=== PATIENT | male | born 1935 | race Caucasian/White ===

== ENCOUNTER 2019-07-27 12:39 | Emergency (ER) | payer MEDICARE, OTHER, SELFPAY ==
[2019-07-27 12:40] VITALS: BP 167/83; PULSE 67; RESP 20; TEMP 36.4; O2SAT 94; BMI 25.4
[2019-07-27 12:44] VITALS: O2SAT 94
--- NOTE | 2019-07-27 12:49 | RAD_ITS ---
STUDY: X-RAY - UNILATERAL RIBS ( LEFT ) WITH CHEST REASON FOR EXAM: Male, 84 years old. FELL TODAY -- LEFT SIDED RIB PAIN TECHNIQUE - RIBS: 4 view(s) of the ribs. TECHNIQUE - CHEST: PA COMPARISON: None. FINDINGS - RIBS: There are transverse fractures of the lateral eighth and ninth ribs. FINDINGS - CHEST: The lungs are clear and expanded. There is no demonstrated pleural abnormality. Normal size heart. Normal mediastinum and chris. Normal visualized pulmonary arteries. There is atherosclerotic calcification of the aortic arch with tortuosity. There is demineralization of the osseous structures. Fusion hardware of the lower thoracic spine with degenerative changes and scoliosis of the thoracolumbar spine. There is no demonstrated abnormality of the visualized soft tissue structures of the upper abdomen. RAD/Ribs Uni Min 3V w/PA Chest IMPRESSION: RIBS: Lateral left eighth and ninth rib fractures. CHEST: No pneumothorax. Electronically Signed: Russ Shaver MD (Brooks) at 13:52 EST , Service support ,
[2019-07-27] MEDS: oxyCODONE 5 MG Tablet PO (13:03)
--- NOTE | 2019-07-27 13:40 | ED.VISSUMM ---
- ER Visit Summary Date of Service: 07/27/19 Chief Complaint: Left rib pain History of Present Illness: The patient is a 84 M who presents with left rib pain. Patient states he was reaching for something at home when he fell and hit the left side of his ribs. He normally ambulates with a walker and he believes he fell onto his walker. Unknown head trauma. He is complaining of pain in the left ribs. Is worse with breathing. Ibuprofen is not helping at home. He denies any other symptoms at this time. Physical Examination: Vital signs are reviewed. HEENT exam is atraumatic. His neck is nontender. Heart is regular rate and rhythm without murmurs. Lungs are clear. He has tenderness to palpation of the left ribs in the midaxillary line. Abdomen is soft and nontender. Back nontender. His GCS is 15. Neurologic exam is at baseline. Test Results: Left rib x-rays reveal 8 the ninth rib fractures. CAT scan head reveals chronic changes. Emergency Department Course and Treatment: Patient was given oxycodone. There are no signs of pneumothorax. I will treat him with oxycodone for home. He will be given an incentive spirometer to prevent pneumonia. He will call his doctor on Monday for follow-up. Treatment Plan: [] Disposition: Discharge Impression: Left rib fractures This note was generated with [employer] dictation software. It may contain incorrect words, spelling, and punctuation that were not noted in review of the chart prior to signing ED Disposition - Plan for ED Patient: Referrals: Davy Leiva MD [Primary Care Provider] -
--- NOTE | 2019-07-27 13:41 | CT_ITS ---
STUDY: CT BRAIN WITHOUT CONTRAST REASON FOR EXAM: Male, 84 years old. FALL 2 DAYS AGO. DEMENTIA AND PARKINSON''S RADIATION DOSAGE (If Supplied By Facility): CTDIvol = ( 44.99 ) mGy, DLP = ( 812.98 ) mGycm TECHNIQUE: Transaxial CT imaging of the brain was performed without administration of intravenous contrast material. Individualized dose optimization techniques were used for this CT. COMPARISON: No relevant priors. FINDINGS: Normal soft tissue structures. Normal calvarium. There is mild cerebral atrophy with widening of the extra-axial spaces and ventricular dilatation. There are areas of decreased attenuation within the white matter tracts of the supratentorial brain, consistent with microvascular disease changes. Localized area of diminished density of the junction of the left frontal and parietal lobes may be sequela of old infarction. Normal basal ganglia and thalami. Normal brainstem. Normal cerebellum. There is no intracranial hemorrhage. There are no findings of an acute ischemic infarction. Sclerosis and fluid of the bilateral mastoid air cells identified. Visualized paranasal sinuses are unremarkable. CT/Brain/Head without Contrast IMPRESSION: 1. No acute intracranial hemorrhage or mass effect. 2. Central parenchymal volume loss. White matter changes that are nonspecific but most commonly associated with chronic small vessel ischemic disease. Small old lacunar infarction of the left frontal-parietal lobe junction. 3. Bilateral mastoiditis, chronic appearing. Electronically Signed: Russ Shaver MD (Brooks) at 14:16 EST , Service support ,
--- NOTE | 2019-07-27 14:45 | ED.DEP ---
ED Disposition - Plan for ED Patient: Disposition: Home or Assisted Living Instructions: FRACTURE, Rib Prescriptions: Oxycodone [Oxyir] 5 mg PO Q6H PRN PRN 3 Days #12 tablet PRN Reason: Pain/Inflammation Transmission Status: Sent to [facility] Referrals: Davy Leiva MD [Primary Care Provider] -
[2019-07-27 15:03] VITALS: BP 172/84; PULSE 54; RESP 16; O2SAT 95
== END 2019-07-27 15:07 | disposition home or self-care (01) ==
PROVIDERS: Emergency Provider Emergency Medicine; Family Provider Family Medicine; PCP Family Medicine
DX: S22.42XA Multiple fractures of ribs, left side, initial encounter for closed fracture (principal); W18.39XA Other fall on same level, initial encounter; Y93.89 Activity, other specified; Y92.009 Unspecified place in unspecified non-institutional (private) residence as the place of occurrence of the external cause; F03.90 Unspecified dementia, unspecified severity, without behavioral disturbance, psychotic disturbance, mood disturbance, and anxiety; I10 Essential (primary) hypertension
CPT/HCPCS: 70450; 71101; 99284

== ENCOUNTER 2019-10-02 13:07 | Inpatient (IN) | payer MEDICARE, OTHER, SELFPAY ==
[2019-10-02] VITALS (7 sets, daily range): BP systolic 125–157; BP diastolic 70–82; PULSE 56–71; RESP 14–18; TEMP 36.2–36.9; O2SAT 91–99; BMI 32.5; BMI 22.9
--- NOTE | 2019-10-02 13:18 | ED.RN ---
social worker aide at bedside.
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
--- NOTE | 2019-10-02 13:58 | CT_ITS ---
STUDY: CT BRAIN WITHOUT CONTRAST REASON FOR EXAM: Male, 84 years old. Trauma, fall, denies head pain or LOC. Hx Parkinson''s, dementia, hypertension, diabetes. RADIATION DOSAGE (If Supplied By Facility): CTDIvol = ( 44.99 ) mGy, DLP = ( 796.11 ) mGycm TECHNIQUE: Transaxial CT imaging of the brain was performed without administration of intravenous contrast material. Individualized dose optimization techniques were used for this CT. COMPARISON: Comparison is made with prior examination dated July 27, 2019. FINDINGS: Normal soft tissue structures. Normal calvarium. There is mild cerebral atrophy with widening of the extra-axial spaces and ventricular dilatation. There are areas of decreased attenuation within the white matter tracts of the supratentorial brain, consistent with microvascular disease changes. Normal basal ganglia and thalami. Normal brainstem. Normal cerebellum. There is no intracranial hemorrhage. There are no findings of an acute ischemic infarction. Minimal mucosal thickening along the posterior aspect of the right ethmoid sinus. CT/Brain/Head without Contrast IMPRESSION: Chronic involutional changes of the brain. Electronically Signed: Francisco J Brunson, at 15:33 EDT , Service support ,
--- NOTE | 2019-10-02 13:58 | CT_ITS ---
STUDY: CT CERVICAL SPINE WITHOUT CONTRAST REASON FOR EXAM: Male, 84 years old. Trauma, fall, denies head pain or LOC. Hx Parkinson''s, dementia, hypertension, diabetes. RADIATION DOSAGE (If Supplied By Facility): CTDIvol = ( 25.98 ) mGy, DLP = ( 530.31 ) mGycm TECHNIQUE: High resolution transaxial imaging was performed without contrast material. Sagittal and coronal images were reconstructed. Individualized dose optimization techniques were used for this CT. COMPARISON: None FINDINGS: Normal craniovertebral junction. There are degenerative changes of the anterior atlantoaxial articulation. Normal odontoid process. There is straightening of the normal cervical lordosis. Normal vertebral bodies and posterior osseous elements. C2-3: Facet joint osteoarthritis and hypertrophy with minimal anterior listhesis of C2 on C3 due to the facet joint osteoarthritis. Bilateral neural foraminal stenosis. C3-4: Marked degree of disc space narrowing. Posterior spondylosis and uncovertebral arthrosis. Facet joint osteoarthritis and hypertrophy worse on the right side with the marked degree of the right neural foraminal stenosis. C4-5: Marked degree of disc space narrowing. Spondylosis. Uncovertebral arthrosis. Hypertrophy of the facet joints with bilateral neural foraminal stenosis. C5-6: Marked degree of disc space narrowing. Spondylosis and uncovertebral arthrosis. Marked degree of bilateral neural foraminal stenosis. C6-7: Mild degree of disc space narrowing. Spondylosis. C7-T1: Normal endplates. Normal disc height and morphology. Normal central canal and intervertebral neuroforamina. Atherosclerotic calcification of the aortic arch. Calcification of the carotid bifurcations. CT/Spine Cervical without Contras IMPRESSION: Multilevel degenerative changes, as described above. Electronically Signed: Francisco J Brunson, at 15:36 EDT , Service support ,
--- NOTE | 2019-10-02 13:59 | EKG12_ITS ---
Test Reason : FALL Blood Pressure : / mmHG Vent. Rate : 065 BPM Atrial Rate : 065 BPM P-R Int : 182 ms QRS Dur : 092 ms QT Int : 462 ms P-R-T Axes : 000 -23 139 degrees QTc Int : 480 ms Sinus rhythm with Premature ventricular complexes or Fusion complexes ST & T wave abnormality, consider lateral ischemia Abnormal ECG Confirmed by SIERRA ALANIS, REBEKAH ([id number]), field map editor MONY PACKER ([id number]) on 10/04/2019 12:59:06 PM Referred By: MARTA Confirmed By:RC ESQUIVEL MD
[2019-10-02] MEDS: Ondansetron 4 MG/2 ML Vial IV (14:38)
[2019-10-02] MEDS: 0.9% Normal Saline 1,000 ML 1000 ML IV (14:39)
[2019-10-02] MEDS: fentaNYL 100 MCG/2 ML Ampul 50 MCG IV (14:39)
[2019-10-02 15:11] LABS: Absolute Lymphocyte Count 1.07 X10^3/uL (0.83-4.51); Absolute Neutrophil Count 6.4 X10^3/uL (2.0-7.7); Basophil# 0.02 X10^3/uL; Basophil% 0.2 % (0-1); Eosinophil# 0.02 X10^3/uL; Eosinophils% 0.2 % (0-5); Hematocrit 44.2 % (40-54); Hemoglobin 14.6 g/dL (13.0-16.5); Lymphocyte # 1.07 X10^3/ul (4.0); Lymphocyte % 13.3 % (19-41); Mean Corpuscular Hgb 30.2 pg (27.0-32.0); Mean Corpuscular Volume 91.5 fL (80-94); Mean Platelet Vol. 9.5 fl (6.2-12.0); Monocyte# 0.47 X10^3/uL; Monocyte% 5.8 % (0-10); NRBC Flagged by Analyzer 0 % (0-5); Neutrophil # 6.43 X10^3/uL (2.7-7.7); Neutrophil % 80.1 % (47-70); Platelet Count 162 K/mm3 (150-450); RBC Distribution Width CV 13.2 % (11.6-14.6); Red Blood Count 4.83 M/mm3 (4.6-6.2)
--- NOTE | 2019-10-02 15:20 | RAD_ITS ---
STUDY: X-RAY - PELVIS AND LEFT HIP REASON FOR EXAM: Male, 84 years old. C/O GROIN PAIN, BRUISE TO LT HIP AN BACK PER HOME HEALTH AID TECHNIQUE: 3 views of the pelvis and hip. COMPARISON: None. FINDINGS: Moderate amount of fecal material is seen in the rectosigmoid colon. There are multiple calcified phleboliths. Normal bilateral iliac wings, sacroiliac joints and visualized sacrum. Normal bilateral superior and inferior pubic rami. Normal pubic symphysis. Normal bilateral ischial tuberosities. Normal visualized femoral head. Normal acetabulum. There is moderate articular joint space narrowing of the hip. RAD/HIP, UNI W/ Pelvis 2-3 Views IMPRESSION: Moderate degree of degenerative changes of both hip joints. Electronically Signed: Francisco J Brunson, at 15:36 EDT , Service support ,
--- NOTE | 2019-10-02 15:20 | RAD_ITS ---
STUDY: X-RAY CHEST REASON FOR EXAM: Male, 84 years old. FALL, C/O GROIN PAIN, BRUISE TO LT HIP AN BACK PER HOME HEALTH AID TECHNIQUE: Single AP portable view of the chest. COMPARISON: Comparison is made with prior examination dated June 23, 2017. FINDINGS: Elevation of the right hemidiaphragm. Persistent mild increased markings in the right midlung suggestive of scarring or recurrent infiltration. Blunting of the left costophrenic angle. Normal size heart. Normal mediastinum and chris. Normal visualized pulmonary arteries. There is atherosclerotic calcification of the aortic arch with tortuosity. There are diffuse degenerative changes of the visualized thoracic spine. Prior fusion in the lower thoracic spine. There is degenerative osteoarthritis of the bilateral shoulders. There is no demonstrated abnormality of the visualized soft tissue structures of the upper abdomen. RAD/Chest 1 View (Portable) IMPRESSION: Elevation of the right hemidiaphragm. Mild increased markings in the right midlung although this has improved as compared to prior study. Electronically Signed: Francisco J Brunson, at 16:02 EDT , Service support ,
[2019-10-02 15:21] LABS: ALB/GLOB Ratio 1.2 RATIO (0.9-2.4); AST(SGOT) 24 U/L (15-37); Alanine Aminotransfer ALT/SGPT 20 U/L (16-61); Albumin, Serum 3.7 g/dL (3.2-5.0); Alkaline Phosphatase 149 U/L (45-117); Anion Gap 0 (5-15); BUN 12 mg/dL (7-18); BUN/Creat Ratio 16.8 RATIO (10-20); CPK Total, Creatine Kinase 250 U/L (39-308); Calcium,Total 8.8 mg/dL (8.5-10.1); Chloride 108 mmol/L (98-107); Creatinine, Serum 0.71 mg/dL (0.70-1.30); EST Glomerular Filtration Rate 112 mL/min (>60); Est Glom Filt Rate - Afr Amer 135 mL/min (>60); Estimated Creatinine Clearance 54.15 ml/min; Globulin 3.1 g/dL (2.2-4.2); Glucose 112 mg/dL (74-106); Potassium 3.7 mmol/L (3.5-5.1); Protein, Total 6.8 g/dL (6.4-8.2); Sodium Level 142 mmol/L (136-145)
[2019-10-02 15:28] LABS: International Normalized Ratio 1.2; Partial Thromboplast Time 30.2 Seconds (24.1-36.2); Prothrombin Time (Protime)PT. 14.6 SECONDS (11.7-14.9)
--- NOTE | 2019-10-02 16:02 | ED.RN ---
pt straight cath with no urine return, MD aware, no new orders given at this time.
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
[2019-10-02 16:40] LABS: Color, Urine Yellow (Yellow); Glucose, Dipstick Normal (Normal); Ketone-Dipstick 5 mg/dl (Negative); Leukocyte Esterase-Dipstick 500 /ul (Negative); Nitrite-Dipstick Positive (Negative); Occult Blood-Urine 250 /ul (Negative); Protein-Dipstick 500 mg/dl (Negative); Urine Bilirubin Dipstick Negative (Negative); Urine Clarity Clear (Clear); Urine Urobilinogen 1 mg/dl (Normal)
[2019-10-02 17:13] LABS: Bacteria 3+ /hpf (None Seen); Mucous, Urine 1+ /hpf (<or=2+); Red Blood Cells-Urine 0-5 SEEN /hpf (0-5); Squamous Epithelial Cells - UA 0-5 SEEN /hpf (0-5); White Blood Cells 0-5 SEEN /hpf (0-5)
[2019-10-02 17:14] LABS: Amorphous Sediment 1+
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
[2019-10-02] MEDS: 0.9% Saline Lock 10 ML Syringe IV (18:47)
[2019-10-02] MEDS: 0.9% Normal Saline 1,000 ML 75 ML IV (18:47)
[2019-10-02 18:52] LABS: Magnesium 2.1 mg/dL (1.6-2.6)
[2019-10-02] MEDS: Morphine 2 MG/ML Syringe IV (18:53)
[2019-10-02] MEDS: Donepezil HCl 10 MG Tablet PO (20:51)
[2019-10-02] MEDS: Atorvastatin Calcium 10 MG Tablet PO (20:51)
[2019-10-02] MEDS: Famotidine 20 MG Tablet PO (20:51)
[2019-10-02] MEDS: QUEtiapine 25 MG Tablet PO (20:51)
[2019-10-03] MEDS: Morphine 2 MG/ML Syringe IV (02:33)
[2019-10-03 02:40] VITALS: BP 136/68; PULSE 51; RESP 18; TEMP 37; O2SAT 97
[2019-10-03 03:01] VITALS: PULSE 47
[2019-10-03] MEDS: 0.9% Normal Saline 1,000 ML 75 ML IV ×2 (06:20→20:40)
[2019-10-03] MEDS: Carbidopa/Levodopa 25/100 Tablet PO ×3 (06:20→20:06)
[2019-10-03 06:56] LABS: Anion Gap 6 (5-15); BUN 13 mg/dL (7-18); BUN/Creat Ratio 19.5 RATIO (10-20); Chloride 110 mmol/L (98-107); Creatinine, Serum 0.67 mg/dL (0.70-1.30); EST Glomerular Filtration Rate 121 mL/min (>60); Est Glom Filt Rate - Afr Amer 147 mL/min (>60); Estimated Creatinine Clearance 55.89 ml/min; Glucose 89 mg/dL (74-106); Potassium 3.7 mmol/L (3.5-5.1); Sodium Level 143 mmol/L (136-145)
[2019-10-03 08:40] VITALS: BP 155/76; PULSE 62; RESP 16; TEMP 36.7; O2SAT 93
[2019-10-03] MEDS: Gabapentin 300 MG Capsule PO ×3 (08:42→20:06)
[2019-10-03] MEDS: Lisinopril 40 MG Tablet PO (08:42)
[2019-10-03] MEDS: Enoxaparin 40 MG/0.4 ML Syringe SC (08:42)
[2019-10-03] MEDS: dilTIAZem CD 180 MG Capsule PO (08:42)
[2019-10-03] MEDS: Famotidine 20 MG Tablet PO ×2 (08:42→20:06)
[2019-10-03 10:20] LABS: Vitamin B12 179 pg/mL (211-911)
[2019-10-03 11:15] VITALS: BP 148/86; PULSE 62; RESP 16; TEMP 36.6; O2SAT 95
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
--- NOTE | 2019-10-03 12:48 | CASEMGMT ---
Living Will and Health Care Power of Nurse Healthcare Manager naming pt Hilda Skaggs are under summary tab of pt DARCIE. SCOTT Rainey
--- NOTE | 2019-10-03 13:19 | NURSING ---
pt hitting, spitting yelling, attempting to get out of bed, throwing things at staff. nursing staff at bedside. notified dr rothman
--- NOTE | 2019-10-03 13:32 | NURSING ---
Patient extremely agitated. Hitting staff and trying to get out bed. Cursing at staff. Will not stay in bed or leave gown on. Concern with patient injury himself. Dr. Fine notified and will order Gato and Sasha Kearney will be up to assess patient. extra male staff member from bed laborer to help sitter in the room until we can have the patient less agitated to prevent injury to patient or staff.
--- NOTE | 2019-10-03 13:35 | SUR.OPER ---
Sasha bolanos to see patient. Entering more medication orders. Libra amezcua RN aware. 3 staff members remain as sitters in room with patient. Patient continues to hit and spit at staff.
--- NOTE | 2019-10-03 13:36 | NURSING ---
Sasha bolanos to see patient. Writing more medication orders. 3 staff remain in patient room due to hitting and spitting at staff, continue to crawl out of bed. Libra Iraheta primary RN aware.
[2019-10-03] MEDS: Haloperidol Lactate 5 MG/ML Vial 2 MG IM (13:41)
--- NOTE | 2019-10-03 14:05 | NURSING ---
this nurse to [facility] to discussed patient prior to transfer to [facility]. pt noted to be verbally and physically aggressive. Pt has 4 staff members at the bedside helping to keep patient from hitting staff. Aware per primary RN that pt's is unavailable at this time. This nurse placed call to pt's son listed on demographics requesting him come see patient. Primary RN administering Haldol IM. Phone call placed to Dr. Fine, discussed patient's status and safety concerns. Discussed soft wrist restraints if necessary. Dr. Fine sent order for soft wrist restraints as necessary.
--- NOTE | 2019-10-03 14:15 | NURSING ---
pt's son now at bedside and was updated by primary RN Libra. Pt now in bed with gown on and more relaxed. Pt transferred to FL3 with Ishmael Box RN, This nurse, FELICE veliz and patient's son.
[2019-10-03] MEDS: Acetaminophen 325 MG Tablet 650 MG PO ×2 (14:48→21:16)
[2019-10-03] MEDS: QUEtiapine 25 MG Tablet PO ×2 (14:49→20:07)
--- NOTE | 2019-10-03 16:00 | PCM.PROGNOTE ---
<Sasha Kearney - Last Filed: 10/03/19 16:14> Patient Problems: Active and Suspected Problems Recurrent fall (Acute) Subjective: Patient seen and examined. Confused this morning however pleasant and cooperative. Later in the day developed increased agitation and combativeness. Requiring bedside sitter for safety. - Physical Exam Vitals/I&O's: Vital Signs Temp Pulse Resp BP Pulse Ox 97.9 F 62 16 148/86 H 95 10/03/19 11:15 10/03/19 11:15 10/03/19 11:15 10/03/19 11:15 10/03/19 11:15 Oxygen Flow Rate (L/min) 2 Oxygen Delivery Method Room Air Weight: 155 lb 10.342 oz Body Mass Index (BMI) 22.9 Intake and Output for Last 24 Hours 10/01/19 10/02/19 10/03/19 23:59 23:59 23:59 Intake Total 1000 / 1140 1411.25 / 1411.25 Output Total 100 / 100 Balance 1000 / 1140 1311.25 / 1311.25 General: Alert, Oriented x3, Confused HEENT: Atraumatic, PERRLA, EOMI, Normocephalic Neck: Supple, No JVD, Negative Carotid Bruits Lungs: Clear to auscultation, Normal air movement Cardiovascular: Regular rate, Regular Rhythm, Normal S1, Normal S2, No murmurs Abdomen: Bowel Sounds Present, Soft, Non Tender, Non-Distended Extremities: No clubbing, No cyanosis, No edema Skin: No rashes, No breakdown, - - Staged ecchymosis scattered bilateral upper and lower extremities Musculoskeletal: No Tenderness to Palpation of Joints or Extremities, Tenderness - Right hip area Neurological: Cranial nerves II-XII grossly intact, Neuro grossly intact Psych/Mental Status: Agitated, Impulsive, Restless Laboratory Results 10/02/19 14:55: Magnesium 2.1 10/02/19 16:30: Urine Color Yellow, Urine Clarity Clear, Urine pH 8.0, Ur Specific [place] 1.010, Urine Protein 500 H, Urine Glucose (UA) Normal, Urine Ketones 5 H, Urine Occult Blood 250 H, Urine Nitrite Positive H, Urine Bilirubin Negative, Urine Urobilinogen 1 H, Ur Leukocyte Esterase 500 H, Urine RBC 0-5 SEEN, Urine WBC 0-5 SEEN, Ur Squamous Epith Cells 0-5 SEEN, Amorphous Sediment 1+, Urine Bacteria 3+, Urine Mucus 1+ 10/02/19 20:35: Troponin I 0.056 H 10/03/19 05:54: Sodium 143, Potassium 3.7, Chloride 110 H, Carbon Dioxide 27.0, Anion Gap 6, BUN 13, Creatinine 0.67 L, Estim Creat Clear Calc 55.89, Est GFR (MDRD) Af Amer 147, Est GFR (MDRD) Non-Af 121, BUN/Creatinine Ratio 19.5, Glucose 89, Calcium 8.0 L, Folate 17.50, TSH 1.20 10/03/19 05:54: Vitamin B12 179 L, Vitamin D 25-Hydroxy Pending Current Medications Acetaminophen (Tylenol) 650 mg PO Q6H PRN PRN PRN Reason: Pain Score 1-10/Temp > 100.7 F Last Admin: 10/03/19 14:48 Dose: 650 mg Documented by: Al Hydroxide/Mg Hydroxide (Mylanta Ii) 30 ml PO Q6H PRN PRN PRN Reason: Gastric Burning Atorvastatin Calcium (Lipitor) 10 mg PO QHS [facility] Last Admin: 10/02/19 20:51 Dose: 10 mg Documented by: Carbidopa/Levodopa (Sinemet) 1 tablet PO TIDAC [facility] Last Admin: 10/03/19 11:14 Dose: 1 tablet Documented by: Diltiazem HCl (Cardizem Cd) 180 mg PO DAILY [facility] Last Admin: 10/03/19 08:42 Dose: 180 mg Documented by: Donepezil HCl (Aricept) 10 mg PO QHS [facility] Last Admin: 10/02/19 20:51 Dose: 10 mg Documented by: Enoxaparin Sodium (Lovenox) 40 mg SC DAILY [facility] Last Admin: 10/03/19 08:42 Dose: 40 mg Documented by: Famotidine (Pepcid) 20 mg PO BID [facility] Last Admin: 10/03/19 08:42 Dose: 20 mg Documented by: Gabapentin (Neurontin) 300 mg PO TIDCM [facility] Last Admin: 10/03/19 12:29 Dose: 300 mg Documented by: Glucagon () 1 mg IM .X1 PRN PRN Reason: Hypoglycemia Haloperidol Lactate (Haldol) 2 mg IM Q4H PRN PRN PRN Reason: AGITATION Sodium Chloride () 1,000 mls @ 75 mls/hr IV .[id number] [facility] Last Infusion: 10/03/19 08:32 Dose: 0 mls/hr Documented by: Dextrose (Dextrose 10%-Water) 250 mls @ 999 mls/hr IV .Q16M PRN; Protocol PRN Reason: HYPOGLYCEMIA Lisinopril (Zestril) 40 mg PO DAILY [facility] Last Admin: 10/03/19 08:42 Dose: 40 mg Documented by: Morphine Sulfate () 2 mg IV Q3H PRN PRN PRN Reason: Pain Score 6-10/10 Last Admin: 10/03/19 02:33 Dose: 2 mg Documented by: Nitroglycerin (Nitrostat) 0.4 mg SUBLINGUAL Q5M PRN PRN Reason: CARDIAC/CHEST PAIN Oxycodone HCl (Oxyir) 5 mg PO Q4H PRN PRN PRN Reason: Pain Score 4-5/10 Prochlorperazine Edisylate (Compazine Iv) 5 mg IV Q4H PRN PRN PRN Reason: Breakthrough nausea/vomiting Quetiapine Fumarate (Seroquel) 25 mg PO QHS [facility] Last Admin: 10/03/19 14:49 Dose: 25 mg Documented by: Quetiapine Fumarate (Seroquel) 25 mg PO QHS PRN PRN Reason: AGITATION Sodium Chloride () 10 - 40 ml IV UD PRN PRN Reason: SALINE FLUSH Last Admin: 10/02/19 18:47 Dose: 10 ml Documented by: Medical Necessity - Tobacco Use Smoking Status: Former smoker Tobacco Use: Cigarettes Assessment/Plan All Active Problems Recurrent fall (Acute) 1. Parkinson's disease with gait instability, recurrent falls at home- PT/OT. Continue home medication regimen. Brain CT with chronic changes. Cervical spine CT with degenerative changes. Chest x-ray without acute process. Hip and pelvis x-ray shows no acute process. SNF pending pre-CERT. 2. Dementia with behavioral disturbances-increased agitation this afternoon. On Aricept, Seroquel. PRN Haldol ordered. 3. Possible UTI-may be contributing to increased confusion and weakness. Urinalysis with 3+ bacteria, 500 leukocytes and positive nitrite. Urine culture pending. Will begin IV Rocephin empirically pending culture. 4. Indeterminate troponin-did not trend. No EKG changes. Denies chest pain. No plans for further evaluation at this time. 5. Hypertension-stable, continue lisinopril regimen. 6. Hyperlipidemia-continue statin. 7. GERD-continue PPI. DVT prophylaxis-Lovenox subcu Discharge planning: SNF pending approval. This patient was seen by RACHEL Mccoy under the supervision of Dr. Fine. <RodyMichelle Bajwa - Last Filed: 10/03/19 17:40> - Physical Exam Vitals/I&O's: Vital Signs Temp Pulse Resp BP Pulse Ox 97.9 F 62 16 148/86 H 95 10/03/19 11:15 10/03/19 11:15 10/03/19 11:15 10/03/19 11:15 10/03/19 11:15 Oxygen Flow Rate (L/min) 2 Oxygen Delivery Method Room Air Weight: 155 lb 10.342 oz Body Mass Index (BMI) 22.9 Intake and Output for Last 24 Hours 10/01/19 10/02/19 10/03/19 23:59 23:59 23:59 Intake Total 1000 / 1140 1411.25 / 1411.25 Output Total 100 / 100 Balance 1000 / 1140 1311.25 / 1311.25 Laboratory Results 10/02/19 14:55: Magnesium 2.1 10/02/19 20:35: Troponin I 0.056 H 10/03/19 05:54: Sodium 143, Potassium 3.7, Chloride 110 H, Carbon Dioxide 27.0, Anion Gap 6, BUN 13, Creatinine 0.67 L, Estim Creat Clear Calc 55.89, Est GFR (MDRD) Af Amer 147, Est GFR (MDRD) Non-Af 121, BUN/Creatinine Ratio 19.5, Glucose 89, Calcium 8.0 L, Folate 17.50, TSH 1.20 10/03/19 05:54: Vitamin B12 179 L, Vitamin D 25-Hydroxy Pending Current Medications Acetaminophen (Tylenol) 650 mg PO Q6H PRN PRN PRN Reason: Pain Score 1-10/Temp > 100.7 F Last Admin: 10/03/19 14:48 Dose: 650 mg Documented by: Al Hydroxide/Mg Hydroxide (Mylanta Ii) 30 ml PO Q6H PRN PRN PRN Reason: Gastric Burning Atorvastatin Calcium (Lipitor) 10 mg PO QHS [facility] Last Admin: 10/02/19 20:51 Dose: 10 mg Documented by: Carbidopa/Levodopa (Sinemet) 1 tablet PO TIDAC [facility] Last Admin: 10/03/19 11:14 Dose: 1 tablet Documented by: Diltiazem HCl (Cardizem Cd) 180 mg PO DAILY [facility] Last Admin: 10/03/19 08:42 Dose: 180 mg Documented by: Donepezil HCl (Aricept) 10 mg PO QHS [facility] Last Admin: 10/02/19 20:51 Dose: 10 mg Documented by: Enoxaparin Sodium (Lovenox) 40 mg SC DAILY [facility] Last Admin: 10/03/19 08:42 Dose: 40 mg Documented by: Famotidine (Pepcid) 20 mg PO BID [facility] Last Admin: 10/03/19 08:42 Dose: 20 mg Documented by: Gabapentin (Neurontin) 300 mg PO TIDCM [facility] Last Admin: 10/03/19 12:29 Dose: 300 mg Documented by: Glucagon () 1 mg IM .X1 PRN PRN Reason: Hypoglycemia Haloperidol Lactate (Haldol) 2 mg IM Q4H PRN PRN PRN Reason: AGITATION Sodium Chloride () 1,000 mls @ 75 mls/hr IV .[id number] [facility] Last Infusion: 10/03/19 08:32 Dose: 0 mls/hr Documented by: Dextrose (Dextrose 10%-Water) 250 mls @ 999 mls/hr IV .Q16M PRN; Protocol PRN Reason: HYPOGLYCEMIA Ceftriaxone Sodium 2 gm/ (Sodium Chloride) 50 mls @ 100 mls/hr IV Q24 [facility] Last Admin: 10/03/19 17:15 Dose: Not Given Documented by: Lisinopril (Zestril) 40 mg PO DAILY [facility] Last Admin: 10/03/19 08:42 Dose: 40 mg Documented by: Morphine Sulfate () 2 mg IV Q3H PRN PRN PRN Reason: Pain Score 6-10/10 Last Admin: 10/03/19 02:33 Dose: 2 mg Documented by: Nitroglycerin (Nitrostat) 0.4 mg SUBLINGUAL Q5M PRN PRN Reason: CARDIAC/CHEST PAIN Oxycodone HCl (Oxyir) 5 mg PO Q4H PRN PRN PRN Reason: Pain Score 4-5/10 Prochlorperazine Edisylate (Compazine Iv) 5 mg IV Q4H PRN PRN PRN Reason: Breakthrough nausea/vomiting Quetiapine Fumarate (Seroquel) 25 mg PO QHS [facility] Last Admin: 10/03/19 14:49 Dose: 25 mg Documented by: Quetiapine Fumarate (Seroquel) 25 mg PO QHS PRN PRN Reason: AGITATION Sodium Chloride () 10 - 40 ml IV UD PRN PRN Reason: SALINE FLUSH Last Admin: 10/02/19 18:47 Dose: 10 ml Documented by: Assessment/Plan Patient seen by Sasha RAMOS under my supervision Patient was admitted with a complaint of recurrent falls at home. He has Parkinson's disease with gait instability. He was admitted for placement. Patient seen and examined. He was initially calm but subsequently became very agitated later in the day. He required IM Haldol as well as a bedside sitter. o/e: Vital Signs Height 5 ft 9 in Weight: 155 lb 10.342 oz Weight in Pounds 155.6 lbs Pulse Ox 95 Temperature 97.9 F Pulse Rate 62 Respiratory Rate 16 Blood Pressure 148/86 Blood Pressure Position Semi-Fowlers General: Alert, Oriented x3, confused, agitated HEENT: Atraumatic, PERRLA, EOMI, Normocephalic Neck: Supple, No JVD, Negative Carotid Bruits Lungs: Clear to auscultation, Normal air movement Cardiovascular: Regular rate, Regular Rhythm, Normal S1, Normal S2, No murmurs Abdomen: Bowel Sounds Present, Soft, Non Tender, Non-Distended Extremities: No clubbing, No cyanosis, No edema Skin: No rashes, No breakdown, - -few ecchymotic patches over arms. Musculoskeletal: No Tenderness to Palpation of Joints or Extremities, Neurological: Cranial nerves II-XII grossly intact, Neuro grossly intact Psych/Mental Status: Agitated, Plan is to start patient on Seroquel 25 mg nightly. IM Haldol 1 mg as needed. Continue with sitter. For placement in SNF once medically stable. Rest as per Sasha MENDESC's note, which I have reviewed and endorsed. Inpatient E&M: 21023 Subs Hosp L2
--- NOTE | 2019-10-03 16:05 | CHAPLAIN ---
sitter in room with patient who is sleeping; left a calling card
[2019-10-03 20:00] VITALS: BP 147/62; PULSE 63; RESP 18; TEMP 37.1; O2SAT 96
[2019-10-03] MEDS: Atorvastatin Calcium 10 MG Tablet PO (20:06)
[2019-10-03] MEDS: Donepezil HCl 10 MG Tablet PO (20:07)
[2019-10-03 20:15] VITALS: PULSE 63; RESP 18; O2SAT 96
[2019-10-03] MEDS: 0.9% Saline Lock 10 ML Syringe IV (20:40)
[2019-10-04 04:43] VITALS: BP 143/59; PULSE 63; RESP 18; TEMP 36.7; O2SAT 92
[2019-10-04] MEDS: Carbidopa/Levodopa 25/100 Tablet PO ×3 (05:01→15:25)
[2019-10-04] MEDS: Acetaminophen 325 MG Tablet 650 MG PO ×2 (06:14→20:29)
[2019-10-04 07:38] LABS: Anion Gap 4 (5-15); BUN 19 mg/dL (7-18); BUN/Creat Ratio 26.4 RATIO (10-20); Chloride 110 mmol/L (98-107); Creatinine, Serum 0.72 mg/dL (0.70-1.30); EST Glomerular Filtration Rate 111 mL/min (>60); Est Glom Filt Rate - Afr Amer 134 mL/min (>60); Estimated Creatinine Clearance 55.89 ml/min; Glucose 122 mg/dL (74-106); Potassium 3.3 mmol/L (3.5-5.1); Sodium Level 142 mmol/L (136-145)
[2019-10-04 10:10] VITALS: BP 141/68; PULSE 66; RESP 18; TEMP 36.4; O2SAT 92
--- NOTE | 2019-10-04 10:11 | NURSING ---
Refusing medications at this time. Pulled IV out. Grabbing this RN's hands to restrain while taking VS. After talking to patient about trying to rest quietly in the bed and to attempt to calm down he is resting in bed in supine position. VSS-see intervention. Will attempt to give medications at a later time. Dr. Buckley updated. Bed alarm on and call light within reach.
--- NOTE | 2019-10-04 11:04 | CASEMGMT ---
Social Work Note KODY spoke with RN. Last time pt had Haldol was at 1:40pm and pt's sitter was discontinued at 12:30pm last night. KODY updated RN that pt will need to be Haldol and sitter free for 24 hours before being able to discharge to SNF. KODY placed a call to [facility] and spoke with Taylor as Tabby in admissions was not available at this time. KODY updated Taylor that pt had Haldol yesterday and sitter was discontinued last night at 12:30pm. KODY updated Taylor that pt will need to be sitter free and Haldol free for 24 hours and that will not be today as sitter was discontinued last night at 12:30pm. KODY placed green sheet and transport form on pt's chart. Per previous notes, PAS/RR was completed for pt already and a new one is not needed. Plan: [facility] once pt is sitter free and Haldol free for 24 hours. Lillie Purcell SLIVER CHOPPER, NURSERY ATTENDANT
[2019-10-04] MEDS: Gabapentin 300 MG Capsule PO ×2 (11:35→17:44)
[2019-10-04] MEDS: Lisinopril 40 MG Tablet PO (11:35)
[2019-10-04] MEDS: Enoxaparin 40 MG/0.4 ML Syringe SC (11:35)
[2019-10-04] MEDS: Famotidine 20 MG Tablet PO ×2 (11:35→20:26)
[2019-10-04] MEDS: dilTIAZem CD 180 MG Capsule PO (11:35)
[2019-10-04] MEDS: 0.9% Normal Saline 1,000 ML 75 ML IV (11:50)
--- NOTE | 2019-10-04 14:02 | PCM.PROGNOTE ---
<Sasha Kearney - Last Filed: 10/04/19 14:07> Patient Problems: Active and Suspected Problems Recurrent fall (Acute) Subjective: Patient seen and examined. Sitting in chair, at bedside. Pleasantly confused. No further agitation or behavioral disturbances overnight. - Physical Exam Vitals/I&O's: Vital Signs Temp Pulse Resp BP Pulse Ox 97.5 F L 66 18 141/68 H 92 10/04/19 10:10 10/04/19 10:10 10/04/19 10:10 10/04/19 10:10 10/04/19 10:10 Oxygen Flow Rate (L/min) 2 Oxygen Delivery Method Room Air Weight: 155 lb 10.342 oz Body Mass Index (BMI) 22.9 Intake and Output for Last 24 Hours 10/02/19 10/03/19 10/04/19 23:59 23:59 23:59 Intake Total 1000 / 1140 1811.25 / 1811.25 1105.0 / 1105.0 Output Total 100 / 100 Balance 1000 / 1140 1711.25 / 1711.25 1105.0 / 1105.0 General: Alert, Cooperative, Confused HEENT: Atraumatic, PERRLA, EOMI, Normocephalic Neck: Supple, No JVD, Negative Carotid Bruits Lungs: Clear to auscultation, Normal air movement Cardiovascular: Regular rate, Regular Rhythm, Normal S1, Normal S2, No murmurs Abdomen: Bowel Sounds Present, Soft, Non Tender, Non-Distended Extremities: No clubbing, No cyanosis, No edema, Capillary Refill Less than 3 Seconds Skin: No rashes, No breakdown, - - Staged ecchymosis scattered bilateral upper and lower extremities Musculoskeletal: No Tenderness to Palpation of Joints or Extremities Neurological: Cranial nerves II-XII grossly intact Psych/Mental Status: Normal Affect, Appropriate Microbiology Past 72 Hours 10/02/19 16:30 Urine, Clean Catch Urine Culture - Preliminary Culture exhibits no growth. Laboratory Results 10/04/19 06:03: Sodium 142, Potassium 3.3 L, Chloride 110 H, Carbon Dioxide 28.0, Anion Gap 4 L, BUN 19 H, Creatinine 0.72, Estim Creat Clear Calc 55.89, Est GFR (MDRD) Af Amer 134, Est GFR (MDRD) Non-Af 111, BUN/Creatinine Ratio 26.4 H, Glucose 122 H, Calcium 8.0 L Current Medications Acetaminophen (Tylenol) 650 mg PO Q6H PRN PRN PRN Reason: Pain Score 1-10/Temp > 100.7 F Last Admin: 10/04/19 06:14 Dose: 650 mg Documented by: Al Hydroxide/Mg Hydroxide (Mylanta Ii) 30 ml PO Q6H PRN PRN PRN Reason: Gastric Burning Atorvastatin Calcium (Lipitor) 10 mg PO QHS COUNT INCLUDES [facility] Last Admin: 10/03/19 20:06 Dose: 10 mg Documented by: Carbidopa/Levodopa (Sinemet) 1 tablet PO TIDAC COUNT INCLUDES THE [facility] Last Admin: 10/04/19 11:35 Dose: 1 tablet Documented by: Diltiazem HCl (Cardizem Cd) 180 mg PO DAILY COUNT INCLUDES [facility] Last Admin: 10/04/19 11:35 Dose: 180 mg Documented by: Donepezil HCl (Aricept) 10 mg PO QHS COUNT INCLUDES [facility] Last Admin: 10/03/19 20:07 Dose: 10 mg Documented by: Enoxaparin Sodium (Lovenox) 40 mg SC DAILY COUNT INCLUDES [facility] Last Admin: 10/04/19 11:35 Dose: 40 mg Documented by: Famotidine (Pepcid) 20 mg PO BID COUNT INCLUDES THE [facility] Last Admin: 10/04/19 11:35 Dose: 20 mg Documented by: Gabapentin (Neurontin) 300 mg PO TIDCM COUNT INCLUDES [facility] Last Admin: 10/04/19 11:35 Dose: 300 mg Documented by: Glucagon () 1 mg IM .X1 PRN PRN Reason: Hypoglycemia Haloperidol Lactate (Haldol) 2 mg IM Q4H PRN PRN PRN Reason: AGITATION Sodium Chloride () 1,000 mls @ 75 mls/hr IV .[id number] COUNT INCLUDES THE [facility] Last Infusion: 10/04/19 12:36 Dose: 75 mls/hr Documented by: Dextrose (Dextrose 10%-Water) 250 mls @ 999 mls/hr IV .Q16M PRN; Protocol PRN Reason: HYPOGLYCEMIA Ceftriaxone Sodium 2 gm/ (Sodium Chloride) 50 mls @ 100 mls/hr IV Q24 COUNT INCLUDES THE [facility] Last Infusion: 10/04/19 12:36 Dose: Infused Documented by: Lisinopril (Zestril) 40 mg PO DAILY COUNT INCLUDES [facility] Last Admin: 10/04/19 11:35 Dose: 40 mg Documented by: Morphine Sulfate () 2 mg IV Q3H PRN PRN PRN Reason: Pain Score 6-10/10 Last Admin: 10/03/19 02:33 Dose: 2 mg Documented by: Nitroglycerin (Nitrostat) 0.4 mg SUBLINGUAL Q5M PRN PRN Reason: CARDIAC/CHEST PAIN Oxycodone HCl (Oxyir) 5 mg PO Q4H PRN PRN PRN Reason: Pain Score 4-5/10 Prochlorperazine Edisylate (Compazine Iv) 5 mg IV Q4H PRN PRN PRN Reason: Breakthrough nausea/vomiting Quetiapine Fumarate (Seroquel) 25 mg PO QHS [facility] Last Admin: 10/03/19 20:07 Dose: 25 mg Documented by: Quetiapine Fumarate (Seroquel) 25 mg PO QHS PRN PRN Reason: AGITATION Sodium Chloride () 10 - 40 ml IV UD PRN PRN Reason: SALINE FLUSH Last Admin: 10/03/19 20:40 Dose: 10 ml Documented by: Medical Necessity - Tobacco Use Smoking Status: Former smoker Tobacco Use: Cigarettes Assessment/Plan All Active Problems Recurrent fall (Acute) 1. Parkinson's disease with gait instability, recurrent falls at home- PT/OT. Continue home medication regimen. Brain CT with chronic changes. Cervical spine CT with degenerative changes. Chest x-ray without acute process. Hip and pelvis x-ray shows no acute process. SNF pending pre-CERT. 2. Dementia with behavioral disturbances-On Aricept, Seroquel. PRN Haldol ordered. Patient with increased agitation and confusion 10/03/2019 which required sitter and use of PRN Haldol. No further incidents. Stable at this time. 3. UTI-ruled out. Urinalysis with 3+ bacteria, 500 leukocytes and positive nitrite. Urine culture shows no growth. No further antibiotics indicated. 4. Indeterminate troponin-did not trend. No EKG changes. Denies chest pain. No plans for further evaluation at this time. 5. Hypertension-stable, continue lisinopril regimen. 6. Hyperlipidemia-continue statin. 7. GERD-continue PPI. DVT prophylaxis-Lovenox subcu Discharge planning: SNF pending approval. This patient was seen by RACHEL Mccoy under the supervision of Dr. Buckley. <Croky Buckley F - Last Filed: 10/04/19 19:31> - Physical Exam Vitals/I&O's: Vital Signs Temp Pulse Resp BP Pulse Ox 97.7 F L 60 20 H 140/64 H 95 10/04/19 15:33 10/04/19 15:33 10/04/19 15:33 10/04/19 15:33 10/04/19 15:33 Oxygen Flow Rate (L/min) 2 Oxygen Delivery Method Room Air Weight: 155 lb 10.342 oz Body Mass Index (BMI) 22.9 Intake and Output for Last 24 Hours 10/02/19 10/03/19 10/04/19 23:59 23:59 23:59 Intake Total 1000 / 1140 1811.25 / 1811.25 1405.0 / 1405.0 Output Total 100 / 100 Balance 1000 / 1140 1711.25 / 1711.25 1405.0 / 1405.0 Microbiology Past 72 Hours 10/02/19 16:30 Urine, Clean Catch Urine Culture - Preliminary Culture exhibits no growth. Laboratory Results 10/04/19 06:03: Sodium 142, Potassium 3.3 L, Chloride 110 H, Carbon Dioxide 28.0, Anion Gap 4 L, BUN 19 H, Creatinine 0.72, Estim Creat Clear Calc 55.89, Est GFR (MDRD) Af Amer 134, Est GFR (MDRD) Non-Af 111, BUN/Creatinine Ratio 26.4 H, Glucose 122 H, Calcium 8.0 L Current Medications Acetaminophen (Tylenol) 650 mg PO Q6H PRN PRN PRN Reason: Pain Score 1-10/Temp > 100.7 F Last Admin: 10/04/19 06:14 Dose: 650 mg Documented by: Al Hydroxide/Mg Hydroxide (Mylanta Ii) 30 ml PO Q6H PRN PRN PRN Reason: Gastric Burning Atorvastatin Calcium (Lipitor) 10 mg PO QHS COUNT INCLUDES [facility] Last Admin: 10/03/19 20:06 Dose: 10 mg Documented by: Carbidopa/Levodopa (Sinemet) 1 tablet PO TIDAC COUNT INCLUDES THE [facility] Last Admin: 10/04/19 15:25 Dose: 1 tablet Documented by: Diltiazem HCl (Cardizem Cd) 180 mg PO DAILY COUNT INCLUDES [facility] Last Admin: 10/04/19 11:35 Dose: 180 mg Documented by: Donepezil HCl (Aricept) 10 mg PO QHS COUNT INCLUDES [facility] Last Admin: 10/03/19 20:07 Dose: 10 mg Documented by: Enoxaparin Sodium (Lovenox) 40 mg SC DAILY COUNT INCLUDES [facility] Last Admin: 10/04/19 11:35 Dose: 40 mg Documented by: Famotidine (Pepcid) 20 mg PO BID COUNT INCLUDES [facility] Last Admin: 10/04/19 11:35 Dose: 20 mg Documented by: Gabapentin (Neurontin) 300 mg PO TIDCM COUNT INCLUDES [facility] Last Admin: 10/04/19 17:44 Dose: 300 mg Documented by: Glucagon () 1 mg IM .X1 PRN PRN Reason: Hypoglycemia Haloperidol Lactate (Haldol) 2 mg IM Q4H PRN PRN PRN Reason: AGITATION Sodium Chloride () 1,000 mls @ 75 mls/hr IV .[id number] COUNT INCLUDES THE [facility] Last Infusion: 10/04/19 12:36 Dose: 75 mls/hr Documented by: Dextrose (Dextrose 10%-Water) 250 mls @ 999 mls/hr IV .Q16M PRN; Protocol PRN Reason: HYPOGLYCEMIA Lisinopril (Zestril) 40 mg PO DAILY COUNT INCLUDES [facility] Last Admin: 10/04/19 11:35 Dose: 40 mg Documented by: Morphine Sulfate () 2 mg IV Q3H PRN PRN PRN Reason: Pain Score 6-10/10 Last Admin: 10/03/19 02:33 Dose: 2 mg Documented by: Nitroglycerin (Nitrostat) 0.4 mg SUBLINGUAL Q5M PRN PRN Reason: CARDIAC/CHEST PAIN Oxycodone HCl (Oxyir) 5 mg PO Q4H PRN PRN PRN Reason: Pain Score 4-5/10 Prochlorperazine Edisylate (Compazine Iv) 5 mg IV Q4H PRN PRN PRN Reason: Breakthrough nausea/vomiting Quetiapine Fumarate (Seroquel) 25 mg PO QHS COUNT INCLUDES [facility] Last Admin: 10/03/19 20:07 Dose: 25 mg Documented by: Quetiapine Fumarate (Seroquel) 25 mg PO QHS PRN PRN Reason: AGITATION Sodium Chloride () 10 - 40 ml IV UD PRN PRN Reason: SALINE FLUSH Last Admin: 10/03/19 20:40 Dose: 10 ml Documented by: Addendum: Dr. Buckley I personally examined the patient and reviewed the chart. I agree with the above. 84-year-old male with Parkinson's dementia last 5 to 10 years presents to the ER for recurrent falls. And falling multiple times every day. He is having PT/OT evaluate him for possible SNF placement. He is currently on Aricept Seroquel and PRN Haldol because of agitation 2 nights ago. He was also being evaluated for possible UTI which has been ruled out. At the moment looking for placement for debility and failure to thrive at home. Hip and pelvis x-rays were negative for fracture, and chest x-ray was negative for any acute process. Inpatient E&M: [id number] Subs Hosp L2
[2019-10-04 15:33] VITALS: BP 140/64; PULSE 60; RESP 20; TEMP 36.5; O2SAT 95
[2019-10-04 20:19] VITALS: BP 158/98; PULSE 58; RESP 18; TEMP 36.4; O2SAT 95
[2019-10-04] MEDS: QUEtiapine 25 MG Tablet PO (20:26)
[2019-10-04] MEDS: Donepezil HCl 10 MG Tablet PO (20:26)
[2019-10-04] MEDS: Atorvastatin Calcium 10 MG Tablet PO (20:27)
[2019-10-04 20:54] VITALS: PULSE 58; RESP 18; O2SAT 95
[2019-10-05] VITALS (8 sets, daily range): BP systolic 141–180; BP diastolic 75–98; PULSE 62–104; RESP 16–18; TEMP 36.3–36.6; O2SAT 95–97
[2019-10-05] MEDS: Acetaminophen 325 MG Tablet 650 MG PO ×3 (03:43→21:21)
[2019-10-05] MEDS: hydrALAZINE 10 MG Tablet PO (04:46)
[2019-10-05] MEDS: Carbidopa/Levodopa 25/100 Tablet PO ×3 (04:46→17:04)
[2019-10-05 07:37] LABS: Anion Gap 5 (5-15); BUN 10 mg/dL (7-18); BUN/Creat Ratio 16.8 RATIO (10-20); Calcium,Total 8.2 mg/dL (8.5-10.1); Chloride 110 mmol/L (98-107); EST Glomerular Filtration Rate 138 mL/min (>60); Est Glom Filt Rate - Afr Amer 167 mL/min (>60); Estimated Creatinine Clearance 55.89 ml/min; Glucose 132 mg/dL (74-106); Potassium 3.9 mmol/L (3.5-5.1); Sodium Level 143 mmol/L (136-145)
[2019-10-05 08:55] LABS: Vitamin D,25 Hydroxy 11.2 ng/mL
[2019-10-05] MEDS: Gabapentin 300 MG Capsule PO ×3 (10:06→17:04)
[2019-10-05] MEDS: dilTIAZem CD 180 MG Capsule PO (10:06)
[2019-10-05] MEDS: Enoxaparin 40 MG/0.4 ML Syringe SC (10:07)
[2019-10-05] MEDS: Famotidine 20 MG Tablet PO ×2 (10:07→21:21)
[2019-10-05] MEDS: Lisinopril 40 MG Tablet PO (10:07)
--- NOTE | 2019-10-05 10:26 | PCM.PROGNOTE ---
<Sasha Kearney - Last Filed: 10/05/19 10:31> Patient Problems: Active and Suspected Problems Recurrent fall (Acute) Subjective: Patient seen and examined. Pleasantly confused this morning. Denies current complaints. - Physical Exam Vitals/I&O's: Vital Signs Temp Pulse Resp BP Pulse Ox 97.6 F L 91 18 180/98 H 97 10/05/19 09:33 10/05/19 09:33 10/05/19 09:33 10/05/19 09:33 10/05/19 09:33 Oxygen Flow Rate (L/min) 2 Oxygen Delivery Method Room Air Weight: 155 lb 10.342 oz Body Mass Index (BMI) 22.9 Intake and Output for Last 24 Hours 10/03/19 10/04/19 10/05/19 23:59 23:59 23:59 Intake Total 1811.25 / 1811.25 2133.75 / 2133.75 50 / 50 Output Total 100 / 100 Balance 1711.25 / 1711.25 2133.75 / 2133.75 50 / 50 General: Alert, Cooperative, No apparent distress HEENT: Atraumatic, PERRLA, EOMI, Normocephalic Neck: Supple, No JVD, Negative Carotid Bruits Lungs: Clear to auscultation, Normal air movement Cardiovascular: Regular rate, Regular Rhythm, Normal S1, Normal S2, No murmurs Abdomen: Bowel Sounds Present, Soft, Non Tender, Non-Distended Extremities: No clubbing, No cyanosis, No edema, Capillary Refill Less than 3 Seconds, - - Staged ecchymosis scattered bilateral upper and lower extremities Skin: No rashes, No breakdown Musculoskeletal: No Tenderness to Palpation of Joints or Extremities Neurological: Cranial nerves II-XII grossly intact, Neuro grossly intact Psych/Mental Status: Normal Affect, Appropriate Microbiology Past 72 Hours 10/02/19 16:30 Urine, Clean Catch Urine Culture - Preliminary Culture exhibits no growth. Laboratory Results 10/03/19 05:54: Vitamin D 25-Hydroxy 11.2 10/05/19 06:43: Sodium 143, Potassium 3.9, Chloride 110 H, Carbon Dioxide 28.0, Anion Gap 5, BUN 10, Creatinine 0.60 L, Estim Creat Clear Calc 55.89, Est GFR (MDRD) Af Amer 167, Est GFR (MDRD) Non-Af 138, BUN/Creatinine Ratio 16.8, Glucose 132 H, Calcium 8.2 L Current Medications Acetaminophen (Tylenol) 650 mg PO Q6H PRN PRN PRN Reason: Pain Score 1-10/Temp > 100.7 F Last Admin: 10/05/19 03:43 Dose: 650 mg Documented by: Al Hydroxide/Mg Hydroxide (Mylanta Ii) 30 ml PO Q6H PRN PRN PRN Reason: Gastric Burning Atorvastatin Calcium (Lipitor) 10 mg PO QHS [facility] Last Admin: 10/04/19 20:27 Dose: 10 mg Documented by: Carbidopa/Levodopa (Sinemet) 1 tablet PO TIDAC [facility] Last Admin: 10/05/19 10:08 Dose: 1 tablet Documented by: Diltiazem HCl (Cardizem Cd) 180 mg PO DAILY [facility] Last Admin: 10/05/19 10:06 Dose: 180 mg Documented by: Donepezil HCl (Aricept) 10 mg PO QHS [facility] Last Admin: 10/04/19 20:26 Dose: 10 mg Documented by: Enoxaparin Sodium (Lovenox) 40 mg SC DAILY [facility] Last Admin: 10/05/19 10:07 Dose: 40 mg Documented by: Famotidine (Pepcid) 20 mg PO BID [facility] Last Admin: 10/05/19 10:07 Dose: 20 mg Documented by: Gabapentin (Neurontin) 300 mg PO TIDCM [facility] Last Admin: 10/05/19 10:06 Dose: 300 mg Documented by: Glucagon () 1 mg IM .X1 PRN PRN Reason: Hypoglycemia Haloperidol Lactate (Haldol) 2 mg IM Q4H PRN PRN PRN Reason: AGITATION Dextrose (Dextrose 10%-Water) 250 mls @ 999 mls/hr IV .Q16M PRN; Protocol PRN Reason: HYPOGLYCEMIA Lisinopril (Zestril) 40 mg PO DAILY [facility] Last Admin: 10/05/19 10:07 Dose: 40 mg Documented by: Morphine Sulfate () 2 mg IV Q3H PRN PRN PRN Reason: Pain Score 6-10/10 Last Admin: 10/03/19 02:33 Dose: 2 mg Documented by: Nitroglycerin (Nitrostat) 0.4 mg SUBLINGUAL Q5M PRN PRN Reason: CARDIAC/CHEST PAIN Oxycodone HCl (Oxyir) 5 mg PO Q4H PRN PRN PRN Reason: Pain Score 4-5/10 Prochlorperazine Edisylate (Compazine Iv) 5 mg IV Q4H PRN PRN PRN Reason: Breakthrough nausea/vomiting Quetiapine Fumarate (Seroquel) 25 mg PO QHS [facility] Last Admin: 10/04/19 20:26 Dose: 25 mg Documented by: Quetiapine Fumarate (Seroquel) 25 mg PO QHS PRN PRN Reason: AGITATION Sodium Chloride () 10 - 40 ml IV UD PRN PRN Reason: SALINE FLUSH Last Admin: 10/03/19 20:40 Dose: 10 ml Documented by: Medical Necessity - Tobacco Use Smoking Status: Former smoker Tobacco Use: Cigarettes Assessment/Plan All Active Problems Recurrent fall (Acute) 1. Parkinson's disease with gait instability, recurrent falls at home- PT/OT. Continue home medication regimen. Brain CT with chronic changes. Cervical spine CT with degenerative changes. Chest x-ray without acute process. Hip and pelvis x-ray shows no acute process. SNF pending pre-CERT. 2. Dementia with behavioral disturbances-On Aricept, Seroquel. Patient with increased agitation and confusion 10/03/2019 which required sitter and use of PRN Haldol. No further incidents. Stable at this time. 3. UTI-ruled out. Urinalysis with 3+ bacteria, 500 leukocytes and positive nitrite. Urine culture shows no growth. No further antibiotics indicated. 4. Indeterminate troponin-did not trend. No EKG changes. Denies chest pain. No plans for further evaluation at this time. 5. Hypertension-stable, continue lisinopril regimen. 6. Hyperlipidemia-continue statin. 7. GERD-continue PPI. DVT prophylaxis-Lovenox subcu Discharge planning: Plan for SNF 10/06/2019. This patient was seen by RACHEL Mccoy under the supervision of Dr. Buckley. <Corky Buckley F - Last Filed: 10/05/19 14:45> - Physical Exam Vitals/I&O's: Vital Signs Temp Pulse Resp BP Pulse Ox 97.8 F 104 H 16 152/83 H 97 10/05/19 14:07 10/05/19 14:07 10/05/19 14:07 10/05/19 14:07 10/05/19 14:07 Oxygen Flow Rate (L/min) 2 Oxygen Delivery Method Room Air Weight: 155 lb 10.342 oz Body Mass Index (BMI) 22.9 Intake and Output for Last 24 Hours 10/03/19 10/04/19 10/05/19 23:59 23:59 23:59 Intake Total 1811.25 / 1811.25 2133.75 / 2133.75 50 / 50 Output Total 100 / 100 Balance 1711.25 / 1711.25 2133.75 / 2133.75 50 / 50 Microbiology Past 72 Hours 10/02/19 16:30 Urine, Clean Catch Urine Culture - Final Culture exhibits no growth. Laboratory Results 10/03/19 05:54: Vitamin D 25-Hydroxy 11.2 10/05/19 06:43: Sodium 143, Potassium 3.9, Chloride 110 H, Carbon Dioxide 28.0, Anion Gap 5, BUN 10, Creatinine 0.60 L, Estim Creat Clear Calc 55.89, Est GFR (MDRD) Af Amer 167, Est GFR (MDRD) Non-Af 138, BUN/Creatinine Ratio 16.8, Glucose 132 H, Calcium 8.2 L Current Medications Acetaminophen (Tylenol) 650 mg PO Q6H PRN PRN PRN Reason: Pain Score 1-10/Temp > 100.7 F Last Admin: 10/05/19 12:24 Dose: 650 mg Documented by: Al Hydroxide/Mg Hydroxide (Mylanta Ii) 30 ml PO Q6H PRN PRN PRN Reason: Gastric Burning Atorvastatin Calcium (Lipitor) 10 mg PO QHS [facility] Last Admin: 10/04/19 20:27 Dose: 10 mg Documented by: Carbidopa/Levodopa (Sinemet) 1 tablet PO TIDAC [facility] Last Admin: 10/05/19 10:08 Dose: 1 tablet Documented by: Diltiazem HCl (Cardizem Cd) 180 mg PO DAILY [facility] Last Admin: 10/05/19 10:06 Dose: 180 mg Documented by: Donepezil HCl (Aricept) 10 mg PO QHS [facility] Last Admin: 10/04/19 20:26 Dose: 10 mg Documented by: Enoxaparin Sodium (Lovenox) 40 mg SC DAILY [facility] Last Admin: 10/05/19 10:07 Dose: 40 mg Documented by: Famotidine (Pepcid) 20 mg PO BID [facility] Last Admin: 10/05/19 10:07 Dose: 20 mg Documented by: Gabapentin (Neurontin) 300 mg PO TIDCM [facility] Last Admin: 10/05/19 12:21 Dose: 300 mg Documented by: Glucagon () 1 mg IM .X1 PRN PRN Reason: Hypoglycemia Dextrose (Dextrose 10%-Water) 250 mls @ 999 mls/hr IV .Q16M PRN; Protocol PRN Reason: HYPOGLYCEMIA Lisinopril (Zestril) 40 mg PO DAILY [facility] Last Admin: 10/05/19 10:07 Dose: 40 mg Documented by: Morphine Sulfate () 2 mg IV Q3H PRN PRN PRN Reason: Pain Score 6-10/10 Last Admin: 10/03/19 02:33 Dose: 2 mg Documented by: Nitroglycerin (Nitrostat) 0.4 mg SUBLINGUAL Q5M PRN PRN Reason: CARDIAC/CHEST PAIN Oxycodone HCl (Oxyir) 5 mg PO Q4H PRN PRN PRN Reason: Pain Score 4-5/10 Prochlorperazine Edisylate (Compazine Iv) 5 mg IV Q4H PRN PRN PRN Reason: Breakthrough nausea/vomiting Quetiapine Fumarate (Seroquel) 25 mg PO QHS [facility] Last Admin: 10/04/19 20:26 Dose: 25 mg Documented by: Quetiapine Fumarate (Seroquel) 25 mg PO QHS PRN PRN Reason: AGITATION Sodium Chloride () 10 - 40 ml IV UD PRN PRN Reason: SALINE FLUSH Last Admin: 10/03/19 20:40 Dose: 10 ml Documented by: Addendum: Dr. Buckley I personally examined the patient and reviewed the chart. I agree with the above. 84-year-old male with Parkinson's dementia for the last 5 to 10 years presents to the ER for recurrent falls. He has been falling multiple times per day and has been evaluated PT/OT and will likely need to be discharged to a custodial facility. He is currently on Aricept and Seroquel, and he has not had any agitation in the last 48 hours. Infectious process has been ruled out at this time and he had a hip and pelvis x-rays after his falls which were negative. His chest x-ray was also negative. We will plan for discharge tomorrow to a custodial facility for failure to thrive and debility Inpatient E&M: [id number] Subs Hosp L2
[2019-10-05] MEDS: QUEtiapine 25 MG Tablet PO (21:21)
[2019-10-05] MEDS: Donepezil HCl 10 MG Tablet PO (21:21)
[2019-10-05] MEDS: Atorvastatin Calcium 10 MG Tablet PO (21:21)
[2019-10-06 02:05] VITALS: BP 155/82; PULSE 59; RESP 18; TEMP 36.6; O2SAT 94
[2019-10-06] MEDS: Carbidopa/Levodopa 25/100 Tablet PO ×2 (06:40→11:13)
[2019-10-06 08:00] VITALS: BP 151/79; PULSE 64; RESP 18; TEMP 36.7; O2SAT 94
[2019-10-06 08:08] VITALS: O2SAT 94
[2019-10-06] MEDS: Famotidine 20 MG Tablet PO (08:19)
[2019-10-06] MEDS: Gabapentin 300 MG Capsule PO ×2 (08:19→11:13)
[2019-10-06] MEDS: dilTIAZem CD 180 MG Capsule PO (08:19)
[2019-10-06] MEDS: Lisinopril 40 MG Tablet PO (08:19)
[2019-10-06] MEDS: Acetaminophen 325 MG Tablet 650 MG PO (08:21)
--- NOTE | 2019-10-06 08:34 | PCM.EXTCARCO ---
- Diet 10/04/19 16:15 Diet: Cardiac/Low Cholesterol Is pt able to select menu?: No - Routine Orders/Code Status Enema Type: Fleetz Enema Frequency: Daily PRN Suppository Type: Dulcolax 10mg Suppository Frequency: Daily PRN Code Status: DNRCC-A - Wound(s) Left Knee Wound Type: Skin Tear R hand Wound Type: Skin Tear R foot little toe Wound Type: Abrasion - Suggestions for Active Care Change Position every (hours): 2 Times a day to sit in chair: 3 - Therapies Physical Therapy: Eval and Treat Occupational Therapy: Eval and Treat - Problem/Diagnosis (1) Recurrent fall Status: Acute Current Visit: Yes (2) Dementia Status: Chronic Current Visit: No (3) HLD (hyperlipidemia) Status: Chronic Current Visit: No (4) HTN (hypertension) Status: Chronic Current Visit: No (5) Parkinson disease Status: Chronic Current Visit: No - Allergies/Procedures Done in Hospital Allergies/Adverse Reactions: Allergies No Known Allergies Allergy (Verified 07/27/19 12:42) Procedures: None - Type of Care/Length of Stay Estimated LOS: More Than 30 Days Type of Care Needed: Skilled Rehab Potential: Fair Prognosis: Fair - Additional Orders/Day of Discharge H&P will serve as current which was dated: 10/02/19 Day of Discharge: 10/06/19 - Dietary and Speech Recommendations Dietitian Recommendations/Changes: Will provide Cardiac/Low Cholesterol diet d/t pt pmhx. - Follow Up Care Primary Care Physician: Davy Leiva MD [Primary Care Provider] - Please follow up with your Primary Care Physician in: 1 Week
--- NOTE | 2019-10-06 08:38 | DS.PCM_ITS ---
<Sasha Kearney - Last Filed: 10/06/19 08:42> Discharge Date and Diagnosis Date of Admission: 10/02/19 Date of Discharge: 10/06/19 - Primary Discharge Diagnosis Active and Suspected Problems 1. Parkinson's disease with gait instability, recurrent falls at home 2. Dementia with behavioral disturbances 3. UTI-ruled out. 4. Indeterminate troponin 5. Hypertension 6. Hyperlipidemia 7. GERD - Secondary Discharge Diagnosis Chronic Problems History of tobacco use (Chronic) HLD (hyperlipidemia) (Chronic) HTN (hypertension) (Chronic) Dementia (Chronic) Parkinson disease (Chronic) Hospital Course and Treatment Imaging Results: Diagnostic Data Brain CT 10/02/19 13:58 IMPRESSION: Chronic involutional changes of the brain. Electronically Signed: Francisco J Brunson, at 15:33 EDT , Service support , Cervical Spine CT 10/02/19 13:58 IMPRESSION: Multilevel degenerative changes, as described above. Electronically Signed: Francisco J Brunson at 15:36 EDT , Service support , Chest X-Ray 10/02/19 15:20 IMPRESSION: Elevation of the right hemidiaphragm. Mild increased markings in the right midlung although this has improved as compared to prior study. Electronically Signed: Francisco J Brunson at 16:02 EDT , Service support , Hip/Pelvis X-Ray 10/02/19 15:20 IMPRESSION: Moderate degree of degenerative changes of both hip joints. Electronically Signed: Francisco J Brunson at 15:36 EDT , Service support , Operations: None Procedures: None Summary of Care Provided: The patient is a 84 year old M admitted 10/02/2019 due to recurrent fall. 1. Parkinson's disease with gait instability, recurrent falls at home- PT/OT. Continue home medication regimen. Brain CT with chronic changes. Cervical spine CT with degenerative changes. Chest x-ray without acute process. Hip and pelvis x-ray shows no acute process. SNF at discharge. 2. Dementia with behavioral disturbances-On Aricept, Seroquel. Patient with increased agitation and confusion 10/03/2019 which required sitter and use of PRN Haldol. No further incidents. Stable at this time. 3. UTI-ruled out. Urinalysis with 3+ bacteria, 500 leukocytes and positive nitrite. Urine culture shows no growth. No further antibiotics indicated. 4. Indeterminate troponin-did not trend. No EKG changes. Denies chest pain. No plans for further evaluation at this time. 5. Hypertension-stable, continue lisinopril regimen. 6. Hyperlipidemia-continue statin. 7. GERD-continue PPI. General: Alert, Cooperative, No apparent distress HEENT: Atraumatic, PERRLA, EOMI, Normocephalic Neck: Supple, No JVD, Negative Carotid Bruits Lungs: Clear to auscultation, Normal air movement Cardiovascular: Regular rate, Regular Rhythm, Normal S1, Normal S2, No murmurs Abdomen: Bowel Sounds Present, Soft, Non Tender, Non-Distended Extremities: No clubbing, No cyanosis, No edema, Capillary Refill Less than 3 Seconds, Staged ecchymosis scattered bilateral upper and lower extremities with skin tears Skin: No rashes, No breakdown Musculoskeletal: No Tenderness to Palpation of Joints or Extremities Neurological: Cranial nerves II-XII grossly intact, Neuro grossly intact Psych/Mental Status: Normal Affect, Appropriate Patient seen and examined prior to discharge. Physical assessment as noted above. Patient is stable for discharge with follow up recommendations as noted above. This patient was seen by RACHEL Mccoy under the supervision of Dr. Buckley. - Physical Exam Vitals/I&O's: Vital Signs Temp Pulse Resp BP Pulse Ox 98.0 F 64 18 151/79 H 94 10/06/19 08:00 10/06/19 08:00 10/06/19 08:00 10/06/19 08:00 10/06/19 08:08 Oxygen Flow Rate (L/min) 2 Oxygen Delivery Method Room Air Weight: 155 lb 10.342 oz Body Mass Index (BMI) 22.9 Intake and Output for Last 24 Hours 10/04/19 10/05/19 10/06/19 23:59 23:59 23:59 Intake Total 2133.75 / 2133.75 450 / 450 Balance 2133.75 / 2133.75 450 / 450 Microbiology Past 72 Hours 10/02/19 16:30 Urine, Clean Catch Urine Culture - Final Culture exhibits no growth. Laboratory Results 10/03/19 05:54: Vitamin D 25-Hydroxy 11.2 Current Medications Acetaminophen (Tylenol) 650 mg PO Q6H PRN PRN PRN Reason: Pain Score 1-10/Temp > 100.7 F Last Admin: 10/06/19 08:21 Dose: 650 mg Documented by: Al Hydroxide/Mg Hydroxide (Mylanta Ii) 30 ml PO Q6H PRN PRN PRN Reason: Gastric Burning Atorvastatin Calcium (Lipitor) 10 mg PO QHS [facility] Last Admin: 10/05/19 21:21 Dose: 10 mg Documented by: Carbidopa/Levodopa (Sinemet) 1 tablet PO TIDAC [facility] Last Admin: 10/06/19 06:40 Dose: 1 tablet Documented by: Diltiazem HCl (Cardizem Cd) 180 mg PO DAILY [facility] Last Admin: 10/06/19 08:19 Dose: 180 mg Documented by: Donepezil HCl (Aricept) 10 mg PO QHS [facility] Last Admin: 10/05/19 21:21 Dose: 10 mg Documented by: Enoxaparin Sodium (Lovenox) 40 mg SC DAILY [facility] Last Admin: 10/05/19 10:07 Dose: 40 mg Documented by: Famotidine (Pepcid) 20 mg PO BID [facility] Last Admin: 10/06/19 08:19 Dose: 20 mg Documented by: Gabapentin (Neurontin) 300 mg PO TIDCM [facility] Last Admin: 10/06/19 08:19 Dose: 300 mg Documented by: Glucagon () 1 mg IM .X1 PRN PRN Reason: Hypoglycemia Dextrose (Dextrose 10%-Water) 250 mls @ 999 mls/hr IV .Q16M PRN; Protocol PRN Reason: HYPOGLYCEMIA Lisinopril (Zestril) 40 mg PO DAILY [facility] Last Admin: 10/06/19 08:19 Dose: 40 mg Documented by: Morphine Sulfate () 2 mg IV Q3H PRN PRN PRN Reason: Pain Score 6-10/10 Last Admin: 10/03/19 02:33 Dose: 2 mg Documented by: Nitroglycerin (Nitrostat) 0.4 mg SUBLINGUAL Q5M PRN PRN Reason: CARDIAC/CHEST PAIN Oxycodone HCl (Oxyir) 5 mg PO Q4H PRN PRN PRN Reason: Pain Score 4-5/10 Prochlorperazine Edisylate (Compazine Iv) 5 mg IV Q4H PRN PRN PRN Reason: Breakthrough nausea/vomiting Quetiapine Fumarate (Seroquel) 25 mg PO QHS [facility] Last Admin: 10/05/19 21:21 Dose: 25 mg Documented by: Quetiapine Fumarate (Seroquel) 25 mg PO QHS PRN PRN Reason: AGITATION Sodium Chloride () 10 - 40 ml IV UD PRN PRN Reason: SALINE FLUSH Last Admin: 10/03/19 20:40 Dose: 10 ml Documented by: Home Medications: Medications to take at Discharge Atorvastatin Calcium [Lipitor] 10 mg PO QHS 12/18/14 Diltiazem CD [Cardizem CD] 180 mg PO DAILY 12/18/14 Gabapentin [Neurontin] 300 mg PO TIDCM 12/18/14 Carbidopa/Levodopa 25/100 [Sinemet 25/100] 1 tablet PO TIDAC 06/16/17 Donepezil HCl [Aricept] 10 mg PO QHS 06/16/17 Lisinopril 40 mg PO DAILY 10/02/19 Quetiapine Fumarate [Seroquel] 25 mg PO QHS 10/02/19 Primary Care Physician: Davy Leiva MD [Primary Care Provider] - Please follow up with your Primary Care Physician in: 1 Week Disposition: Longterm facility Minutes spent on discharge:: 35 Patient Condition:: Stable Medical Necessity - Tobacco Use Smoking Status: Former smoker Tobacco Use: Cigarettes Meaningful Use Info Meaningful Use Diagnoses (Choose all that apply): None applicable <Corky Buckley - Last Filed: 10/06/19 11:03> Discharge Date and Diagnosis - Secondary Discharge Diagnosis Chronic Problems History of tobacco use (Chronic) HLD (hyperlipidemia) (Chronic) HTN (hypertension) (Chronic) Dementia (Chronic) Parkinson disease (Chronic) Hospital Course and Treatment Summary of Care Provided: The patient is a 84 year old M [] - Physical Exam Vitals/I&O's: Vital Signs Temp Pulse Resp BP Pulse Ox 98.0 F 64 18 151/79 H 94 10/06/19 08:00 10/06/19 08:00 10/06/19 08:00 10/06/19 08:00 10/06/19 08:08 Oxygen Flow Rate (L/min) 2 Oxygen Delivery Method Room Air Weight: 155 lb 10.342 oz Body Mass Index (BMI) 22.9 Intake and Output for Last 24 Hours 10/04/19 10/05/19 10/06/19 23:59 23:59 23:59 Intake Total 2133.75 / 2133.75 450 / 450 Balance 2133.75 / 2133.75 450 / 450 Microbiology Past 72 Hours 10/02/19 16:30 Urine, Clean Catch Urine Culture - Final Culture exhibits no growth. Current Medications Acetaminophen (Tylenol) 650 mg PO Q6H PRN PRN PRN Reason: Pain Score 1-10/Temp > 100.7 F Last Admin: 10/06/19 08:21 Dose: 650 mg Documented by: Al Hydroxide/Mg Hydroxide (Mylanta Ii) 30 ml PO Q6H PRN PRN PRN Reason: Gastric Burning Atorvastatin Calcium (Lipitor) 10 mg PO QHS [facility] Last Admin: 10/05/19 21:21 Dose: 10 mg Documented by: Carbidopa/Levodopa (Sinemet) 1 tablet PO TIDAC [facility] Last Admin: 10/06/19 06:40 Dose: 1 tablet Documented by: Diltiazem HCl (Cardizem Cd) 180 mg PO DAILY [facility] Last Admin: 10/06/19 08:19 Dose: 180 mg Documented by: Donepezil HCl (Aricept) 10 mg PO QHS [facility] Last Admin: 10/05/19 21:21 Dose: 10 mg Documented by: Enoxaparin Sodium (Lovenox) 40 mg SC DAILY [facility] Last Admin: 10/05/19 10:07 Dose: 40 mg Documented by: Famotidine (Pepcid) 20 mg PO BID [facility] Last Admin: 10/06/19 08:19 Dose: 20 mg Documented by: Gabapentin (Neurontin) 300 mg PO TIDCM [facility] Last Admin: 10/06/19 08:19 Dose: 300 mg Documented by: Glucagon () 1 mg IM .X1 PRN PRN Reason: Hypoglycemia Dextrose (Dextrose 10%-Water) 250 mls @ 999 mls/hr IV .Q16M PRN; Protocol PRN Reason: HYPOGLYCEMIA Lisinopril (Zestril) 40 mg PO DAILY [facility] Last Admin: 10/06/19 08:19 Dose: 40 mg Documented by: Morphine Sulfate () 2 mg IV Q3H PRN PRN PRN Reason: Pain Score 6-10/10 Last Admin: 10/03/19 02:33 Dose: 2 mg Documented by: Nitroglycerin (Nitrostat) 0.4 mg SUBLINGUAL Q5M PRN PRN Reason: CARDIAC/CHEST PAIN Oxycodone HCl (Oxyir) 5 mg PO Q4H PRN PRN PRN Reason: Pain Score 4-5/10 Prochlorperazine Edisylate (Compazine Iv) 5 mg IV Q4H PRN PRN PRN Reason: Breakthrough nausea/vomiting Quetiapine Fumarate (Seroquel) 25 mg PO QHS [facility] Last Admin: 10/05/19 21:21 Dose: 25 mg Documented by: Quetiapine Fumarate (Seroquel) 25 mg PO QHS PRN PRN Reason: AGITATION Sodium Chloride () 10 - 40 ml IV UD PRN PRN Reason: SALINE FLUSH Last Admin: 10/03/19 20:40 Dose: 10 ml Documented by: Addendum: Dr. Buckley I personally examined the patient and reviewed the chart. I agree with the above. 84-year-old male with Parkinson's dementia for the last 5 to 10 years presents to the ER with recurrent falls. He has been falling multiple times per day and has been evaluated by PT/OT and will likely need to be discharged to [facility] today. He is currently on Aricept and Seroquel which she will continue with, he has not had any agitation over the last 72 hours and therefore likely does not need any chemical restraint at the [facility] facility. X-rays of his hip and pelvis were negative for fractures as well as a chest x-ray for infection. He has a negative UA with normal urine culture. CT of the brain was also normal. Plan for discharge is today. Inpatient E&M: [id number] [facility]
[2019-10-06] MEDS: Enoxaparin 40 MG/0.4 ML Syringe SC (11:13)
[2019-10-06 11:45] VITALS: BP 151/79; PULSE 64; RESP 18; TEMP 36.7; O2SAT 94
--- NOTE | 2019-10-06 12:03 | NURSING ---
- 1201 - attempt to call [facility] to give pt report - no answer - 1202 - 2nd attempt to call [facility] to give report - no answer
--- NOTE | 2019-10-06 12:38 | NURSING ---
- 3rd attempt to call [facility] to give report - no answer.
--- NOTE | 2019-10-06 12:46 | NURSING ---
Had bottle capping machine operator transfer this nurse through to [facility]. Report given to
== END 2019-10-06 11:40 | disposition skilled nursing facility (03) | DRG 57 ==
LOC: ED 13:56 → PCU 18:11 → MS2 10-03 10:41 → PCU 10-03 11:26 → MS2 10-03 11:27 → MS3 10-03 13:58
PROVIDERS: Nurse Practitioner Family; Admitting Provider Internal Medicine; Emergency Provider Emergency Medicine; PCP Family Medicine; Visit Provider Family Medicine
DX: G20 Parkinson's disease (principal); F02.81 Dementia in other diseases classified elsewhere, unspecified severity, with behavioral disturbance; R29.6 Repeated falls; R26.89 Other abnormalities of gait and mobility; R79.89 Other specified abnormal findings of blood chemistry; I10 Essential (primary) hypertension; E78.5 Hyperlipidemia, unspecified; K21.9 Gastro-esophageal reflux disease without esophagitis; E86.0 Dehydration; N39.41 Urge incontinence; R35.0 Frequency of micturition; Z66 Do not resuscitate; Z79.82 Long term (current) use of aspirin; Z87.891 Personal history of nicotine dependence
CPT/HCPCS: 36415; 70450; 71045; 72125; 73502; 80048; 80053; 81001; 82306; 82550; 82607; 82746; 83735; 84443; 84484; 85025; 85610; 85730; 87086; 93005; 97163; 97165; 97166; 97168; 97530; 97535; 99285; J7030; P9612; A4216; J0696; J2405